=== PATIENT | male | born 1975 | race Hispanic/Latino ===

== ENCOUNTER 2024-03-18 07:15 | Day surgery (SDC) | payer OTHER ==
[2024-03-15 10:15] VITALS: BP 141/84; PULSE 77; RESP 18; TEMP 98.1
[2024-03-15 10:32] LABS: BASOPHILS # (AUTO) 0.04 K/uL (0.00-0.20); BASOPHILS % (AUTO) 0.7 % (0.0-5.0); EOSINOPHILS # (AUTO) 0.19 K/uL (0.00-0.70); EOSINOPHILS % (AUTO) 3.2 % (0.0-8.0); HEMATOCRIT 37.3 % (42-54); IMMATURE GRANULOCYTE ABSOLUTE 0.02 K/uL (0-1); LYMPHOCYTES # (AUTO) 1.1 K/uL (1.0-4.8); LYMPHOCYTES % (AUTO) 17.4 % (21.0-51.0); MEAN CORPUSCULAR HEMOGLOBIN 29.1 pg (27.0-33.0); MEAN CORPUSCULAR HGB CONC 32.7 g/dL (32.0-36.0); MONOCYTES # (AUTO) 0.3 K/uL (0.1-1.0); MONOCYTES % (AUTO) 4.5 % (3.0-13.0); NEUTROPHILS # (AUTO) 4.5 K/uL (1.8-7.7); NEUTROPHILS % (AUTO) 73.9 % (40.0-77.0); PLATELET COUNT (AUTO) 78 K/uL (130-400); RED BLOOD CELL COUNT(AUTO) 4.19 MIL/uL (4.50-6.20); RED CELL DISTRIBUTION WIDTH 13.2 % (11.0-15.5)
[2024-03-15 10:43] LABS: INR 0.96 (0.85-1.15); PROTHROMBIN TIME 10.4 SEC (9.6-11.6)
[2024-03-15 10:44] LABS: PARTIAL THROMBOPLASTIN TIME 26.5 SEC (26.3-35.5)
[2024-03-15 10:46] LABS: ALBUMIN 3.8 g/dL (3.5-5.0); BILIRUBIN,TOTAL 0.4 mg/dL (0.2-1.0); CREATININE 6.2 mg/dL (0.5-1.3); POTASSIUM 4.2 mmol/L (3.5-5.1); TOTAL PROTEIN, SERUM 7.5 g/dL (6.0-8.3)
[~2024-03-18] VITALS: Ht 175.3 cm; Wt 106.8 kg
[~2024-03-18 07:15] MED LIST: ASPI-1114 PO; AURYXIA PO; CHOL100046 PO; CINA30TA5 PO; CYAN-106 PO; FERR325T29 PO; FLUO40CA7 PO; MIDO5TAB4 PO; NITR0.4T SL
[2024-03-18] MEDS ORDERED: HEParin-NS 1,000 UNIT/500 ML 0 ML IV ONE (07:29)
[2024-03-18] MEDS ORDERED: BUPIvacaine HCL/EPINEPHrine/PF 0.25% 10ML VIAL IJ ONE (07:29)
[2024-03-18] MEDS ORDERED: 0.9% NACL 500ML IV.SOLN 500 ML IV ONE (07:39)
[2024-03-18] MEDS ORDERED: ceFAZolin SODIUM 1 GM VIAL ONE (07:40)
[2024-03-18] MEDS ORDERED: ceFAZolin SODIUM 2 GM VIAL ONE (07:40)
[2024-03-18 08:00] VITALS: BP 145/90; PULSE 67; RESP 18; TEMP 97.5
[2024-03-18 08:14] LABS: CREATININE 5.3 mg/dL (0.5-1.3); POTASSIUM 3.9 mmol/L (3.5-5.1)
[2024-03-18] MEDS ORDERED: FAMOTIDINE 20MG VIAL IV ONE (08:17)
[2024-03-18] MEDS ORDERED: MIDAZOLAM HCL 1 MG/ML 2ML VIAL ONE (08:31)
[2024-03-18] MEDS ORDERED: proPOFol 10 MG/ML 20ML VIAL IV ONE (08:31)
[2024-03-18] MEDS ORDERED: FENTanyl CITRate PF 50 MCG/1 ML 2ML VIAL ONE (08:32)
[2024-03-18] MEDS ORDERED: ROPivacaine 0.5% 5MG/ML 30ML ONE (08:33)
== END 2024-03-18 08:45 | disposition home or self-care (01) ==
LOC: DAH 07:15 → LAB 08:45 → DAH 08:45
PROVIDERS: ATTEND Student in an Organized Health Care Education/Training Program
DX: E11.22 Type 2 diabetes mellitus with diabetic chronic kidney disease (principal); N18.6 End stage renal disease; Z53.8 Procedure and treatment not carried out for other reasons
CPT/HCPCS: 80053; 85025; 85610; 85730; 86850 ×2; 86900 ×2; 86901 ×2; 36415 ×2; 80048; 82948; 93005; A4600; A6260; J0690; J1644; J2250; J2704; J2795; J3010; J3490; J7040; A4213; A4215; A4216; A4221; A4222; A4223; A4657; A4663

== ENCOUNTER 2024-04-29 07:26 | Day surgery (SDC) | payer OTHER ==
--- NOTE | 2024-04-25 09:07 | EKG ---
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1975 Requested By: SIN ENCISO Order Number: [id number] Reading MD: Leslie Rutledge Measurements Intervals [place] Rate: 66 P: 25 CT: 210 QRS: -36 QRSD: 114 T: 145 QT: 467 QTc: 489 Interpretive Statements Sinus rhythm Prolonged CT interval Left ventricular hypertrophy Abnormal T, consider ischemia, lateral leads Compared to ECG 03/18/2024 07:32:47 First degree AV block now present T-wave abnormality now present Possible ischemia now present Early repolarization no longer present Electronically Signed On 04-26-2024 11:09:14 CDT by Leslie Rutledge Please click the below link to view image of tracing.
[2024-04-25 09:11] LABS: BASOPHILS # (AUTO) 0.04 K/uL (0.00-0.20); BASOPHILS % (AUTO) 0.7 % (0.0-5.0); EOSINOPHILS # (AUTO) 0.23 K/uL (0.00-0.70); EOSINOPHILS % (AUTO) 3.9 % (0.0-8.0); HEMATOCRIT 33.4 % (42-54); IMMATURE GRANULOCYTE ABSOLUTE 0.03 K/uL (0-1); LYMPHOCYTES # (AUTO) 1.2 K/uL (1.0-4.8); LYMPHOCYTES % (AUTO) 20.5 % (21.0-51.0); MEAN CORPUSCULAR HEMOGLOBIN 29.3 pg (27.0-33.0); MEAN CORPUSCULAR HGB CONC 32.9 g/dL (32.0-36.0); MEAN CORPUSCULAR VOLUME 89.1 fL (79-99); MONOCYTES # (AUTO) 0.4 K/uL (0.1-1.0); MONOCYTES % (AUTO) 6.8 % (3.0-13.0); NEUTROPHILS % (AUTO) 67.6 % (40.0-77.0); PLATELET COUNT (AUTO) 75 K/uL (130-400); RED BLOOD CELL COUNT(AUTO) 3.75 MIL/uL (4.50-6.20); RED CELL DISTRIBUTION WIDTH 12.5 % (11.0-15.5); WHITE BLOOD COUNT (AUTO) 5.9 K/uL (4.8-10.8)
[2024-04-25 09:25] LABS: INR 0.94 (0.85-1.15); PROTHROMBIN TIME 10.2 SEC (9.6-11.6)
[2024-04-25 09:26] LABS: PARTIAL THROMBOPLASTIN TIME 26.5 SEC (26.3-35.5)
[2024-04-25 09:34] LABS: ALBUMIN 3.6 g/dL (3.5-5.0); BILIRUBIN,TOTAL 0.4 mg/dL (0.2-1.0); CREATININE 7.5 mg/dL (0.5-1.3); POTASSIUM 4.6 mmol/L (3.5-5.1); TOTAL PROTEIN, SERUM 7.3 g/dL (6.0-8.3)
[2024-04-25 09:44] VITALS: BP 149/87; PULSE 69; RESP 18; TEMP 98.1
[2024-04-29] VITALS (14 sets, daily range): BP systolic 136–157; BP diastolic 81–90; PULSE 60–67; RESP 13–19; TEMP 97–97.7
[~2024-04-29] VITALS: Ht 172.7 cm; Wt 110.4 kg
[~2024-04-29 07:26] MED LIST changes: +0.9% NACL 500ML IV.SOLN 500 ML IV ONE; +CARV3.12 PO; -MIDO5TAB4 PO; +ceFAZolin SODIUM 2 GM VIAL ONE
[2024-04-29 08:11] LABS: PLATELET COUNT (AUTO) 62 K/uL (130-400)
[2024-04-29 08:17] LABS: CREATININE 7.4 mg/dL (0.5-1.3); POTASSIUM 4.1 mmol/L (3.5-5.1)
[2024-04-29] MEDS: ceFAZolin SODIUM 2 GM VIAL ONE (08:20)
[2024-04-29] MEDS: 0.9% NACL 500ML IV.SOLN 500 ML IV ONE (08:21)
[2024-04-29] MEDS ORDERED: LIDOCAINE PF 100MG/5ML (2%) SYRINGE 5ML ONE (10:09)
[2024-04-29] MEDS ORDERED: rocuRONium bROMide 10MG/1ML 5ML VL ONE ×2 (10:09→11:14)
[2024-04-29] MEDS ORDERED: FENTanyl CITRate PF 50 MCG/1 ML 2ML VIAL ONE (10:09)
[2024-04-29] MEDS ORDERED: proPOFol 10 MG/ML 20ML VIAL IV ONE ×2 (10:09→12:34)
[2024-04-29] MEDS ORDERED: ROPivacaine 0.5% 5MG/ML 30ML ONE (10:29)
[2024-04-29] MEDS: HEParin-NS 1,000 UNIT/500 ML 500 ML IV ONE (11:40)
[2024-04-29] MEDS ORDERED: HEParin 10,000 UNIT/10ML (1,000 UNIT/ML) VIAL ONE (11:41)
[2024-04-29] MEDS ORDERED: GLYCOPYRROLATE 0.2 MG/ML 5 ML VIAL ONE (12:17)
[2024-04-29] MEDS ORDERED: NEOSTIGMINE METHYLSULFATE 1MG/ML IV ONE (12:17)
--- NOTE | 2024-04-29 17:14 | OP ---
Operative Note: DATE OF PROCEDURE: 04/29/24 SURGEON: SIN ENCISO MD [facility] TECHNICIAN: [] PREOPERATIVE DIAGNOSIS: End-stage renal disease POSTOPERATIVE DIAGNOSIS: End-stage renal disease PROCEDURE: Right upper extremity brachiocephalic fistula creation INDICATIONS: Patient needs access for dialysis ESTIMATED BLOOD LOSS: []cc Devices left in place: None Anesthesia: General endotracheal DESCRIPTION OF PROCEDURE: Patient is brought to the operating room placed on the operating table in a supine position. Once general endotracheal anesthesia is achieved patient's right upper extremity up to the axilla is prepped and draped in sterile fashion. Using ultrasound we identified the cephalic vein at the forearm and then compared it to the upper arm and it had better diameter in the upper arm. To decision is made that it is better to do a brachiocephalic fistu la and confirmed that it was adequate for fistula creation. We then proceeded to create a transverse incision at the antecubital fossa and dissected down through the skin and subcutaneous tissue to expose the cephalic vein vein. We exposed that for a length of about 6 cm. We then proceeded to expose the brachial artery for a length of about 4 cm and obtained proximal and distal control. We then asked anesthesia to give 5000 units of heparin. I then proceeded to clamp the cephalic vein proximally and distally divided it at the level of the elbow. And suture ligated the distal and end. We then proceeded to to dilate the vein with heparinized saline and ensured that there were no leaks from all the branches were clipped or sutured. I then clamped the brachial artery proximally and distally. I then proceeded to create a end-to-side anastomosis between the brachial artery and the cephalic vein at the antecubital fossa with 6-0 Prolene. I then opened up the clamp to the vein first and that there to be backflow. And then proceeded to open the proximal clamp on the artery to flush out the anastomosis and then open the dist al clamp. I then proceeded to suture the anastomosis. We ensured with a Doppler that we had a strong palmar arch pulse at the right hand and ulnar and radial pulses as well. We had a good thrill throughout the fistula. We then close the skin incision in 2 layers with subcutaneous tissue being closed with 3-0 Vicryl in running fashion and the skin was closed with 4-0 Monocryl in running fashion. Dermabond was applied over top and skin dressings were applied over top patient tolerated the procedure well all counts were correct x2 at the end of the procedure. SIN ENCISO MD Apr 29, 2024 17:14
== END 2024-04-29 14:25 | disposition home or self-care (01) ==
LOC: DAH 07:26
PROVIDERS: ATTEND Student in an Organized Health Care Education/Training Program
DX: I12.0 Hypertensive chronic kidney disease with stage 5 chronic kidney disease or end stage renal disease (principal); E11.22 Type 2 diabetes mellitus with diabetic chronic kidney disease; N18.6 End stage renal disease; I51.7 Cardiomegaly; Z95.1 Presence of aortocoronary bypass graft; E21.3 Hyperparathyroidism, unspecified; Z87.891 Personal history of nicotine dependence; Z79.82 Long term (current) use of aspirin; Z79.899 Other long term (current) drug therapy
CPT/HCPCS: 80053; 85025; 85610; 85730; 86850 ×2; 86900 ×2; 86901 ×2; 36415 ×2; 93005; 36821; 64417; 80048; 85049; 82948 ×2; A6260; A4663; J7040 ×2; J3010; J3490 ×3; J2003; J1644 ×2; J2704 ×2; J2710; J2795; J0690 ×2; A4649 ×3; C1713 ×2; A4930 ×2; A4215; A4223; A4222; A4221; A4600